=== PATIENT | male | born 2000 | race Caucasian/White ===

== ENCOUNTER 2021-08-24 12:43 | Emergency (ER) | payer SELFPAY ==
[2021-08-24] MEDS ORDERED: Lidocaine 1% with EPINEPHrine 1:100,000 10 ML MDV INJECT ONE (13:24)
[2021-08-24] MEDS ORDERED: Lidocaine 1% with EPINEPHrine 1:100,000 20 ML MDV ONE (13:30)
[2021-08-24] MEDS ORDERED: Lidocaine 1% with EPINEPHrine 1:100,000 20 ML MDV INJECT ONE (13:32)
== END 2021-08-24 14:20 | disposition home or self-care (01) ==
LOC: JD.ED 12:43
DX: S01.511A Laceration without foreign body of lip, initial encounter (principal); W22.09XA Striking against other stationary object, initial encounter
CPT/HCPCS: 12011; 99282-25

== ENCOUNTER 2021-08-29 06:26 | Emergency (ER) | payer SELFPAY | END 2021-08-29 07:28 | disposition home or self-care (01) | LOC: JD.ED 06:26 | DX: L08.9 Local infection of the skin and subcutaneous tissue, unspecified (principal); R60.0 Localized edema | CPT/HCPCS: 99282 ==

== ENCOUNTER 2021-09-02 16:20 | Emergency (ER) | payer OTHER | END 2021-09-02 16:50 | disposition home or self-care (01) | LOC: JD.ED 16:20 | DX: S01.511D Laceration without foreign body of lip, subsequent encounter (principal); Z48.02 Encounter for removal of sutures | CPT/HCPCS: 99281 ==